=== PATIENT | female | born 2000 | race Caucasian/White ===

== ENCOUNTER 2021-03-31 19:24 | Emergency (ER) | payer MEDICAID, SELFPAY ==
[2021-03-31 21:23] VITALS: BP 127/48; PULSE 77; RESP 16; TEMP 36.3; O2SAT 98; BMI 22.6
--- NOTE | 2021-03-31 22:39 | ED_ITS ---
HPI - Skin/Abscess/Foreign Bdy General Chief complaint: Skin/Abscess/Foreign Body Stated complaint: scabies Time Seen by Provider: 03/31/21 22:34 Source: patient Mode of arrival: ambulatory Limitations: no limitations History of Present Illness HPI narrative: Patient is a 20-year-old female with no significant past medical history who is here complaining of a rash. She states she has had the rash for 2 days it has on her inner thighs, her labia, her buttocks, hips and right hand. She states that is spreading. She did take some Benadryl 2 hours ago which has helped with the itching. She states she went to urgent care yesterday and was told she had scabies in was given treatment for scabies which did not help. She states that is itchy but she denies fevers. she [place] to being [place] 2 days [place] hiking and swimming. Related Data Previous Rx's Medication Instructions Recorded prednisone 20 mg PO DAILY 4 Days #4 tab 03/31/21 Allergies Allergy/AdvReac Type Severity Reaction Status Date / Time penicillin V Allergy Unknown Hives Verified 03/31/21 21:27 Penicillins Allergy Unknown RASH/HIVES Verified 03/31/21 21:27 Review of Systems Review of Systems: Yes all other systems are reviewed and are negative [facility] Past Medical History Medical History Asthma Social History Social History Advance Directives: No Advance Directives Information Provided: Yes Patient : No Physical Exam Vital Signs: Vital Signs: Last Vital Signs Temp 97.3 F 03/31/21 21:23 Pulse 77 03/31/21 21:23 Resp 16 03/31/21 21:23 BP 127/48 L 03/31/21 21:23 Pulse Ox 98 03/31/21 21:23 Body Mass Index 22.6 Const: General: cooperative, healthy appearing, comfortable and no acute distress Nutritional Appearance: average body habitus Orientation/consciousness: patient oriented x3 Limitations: no limitations Eyes: General: appearance normal, both eyes and all related structures Skin: Other: erythematous, raised, linear patches in bilateral groin, left hip, left hand and small patch on abdomen. Neuro: General: patient oriented x3 Discharge Plan Discharge Clinical Impression: Allergic dermatitis due to poison zainab Patient Disposition: Home, Self-Care Instructions: Poison Zainab (ED) Additional Instructions: As discussed, you sghould soak in Oatmeal baths and use calamine lotion on the affected areas but do not use it on your genitals. you may also take Zantac in addition to the Benadryl for pain relief. I am also sending a prescription for a low-dose of prednisone which is a steroid to help with the itching. you want to be sure to take the prednisone in the morning as it may make her heart race, it may make you hungry and unable to sleep. please be sure to wash all of your clothes and once you touch the affected areas, please be sure to wash her hands as it is easily spreadable and contagious. Prescriptions: New prednisone 20 mg tablet 20 mg PO DAILY 4 Days Qty: 4 RF: 0
== END 2021-03-31 23:12 | disposition home or self-care (01) ==
PROVIDERS: Emergency Provider Internal Medicine; PCP Pediatrics
DX: L23.7 Allergic contact dermatitis due to plants, except food (principal)
CPT/HCPCS: 99283

== ENCOUNTER 2021-04-13 18:55 | Emergency (ER) | payer MEDICAID, SELFPAY ==
[2021-04-13 19:44] VITALS: BP 104/67; TEMP 37; O2SAT 99; BMI 23.0
[2021-04-13 20:40] VITALS: BP 118/70; PULSE 97; RESP 16; O2SAT 99
--- NOTE | 2021-04-13 20:59 | ED.SKABFB ---
HPI - Skin/Abscess/Foreign Bdy General Chief complaint: Skin/Abscess/Foreign Body Stated complaint: abcess Time Seen by Provider: 04/13/21 20:48 Source: patient Mode of arrival: ambulatory Limitations: no limitations History of Present Illness HPI narrative: Patient comes emergency room complaining of 3 abscesses in both labia and 1 is in the perianal region. All are small, started approximately 3-4 days ago, not draining. Patient denies fever chills. Of note, about a week ago patient had poison leobardo around the same area, has been applying calamine. MD complaint: abscess/boil Related Data Previous Rx's Medication Instructions Recorded prednisone 20 mg PO DAILY 4 Days #4 tab 03/31/21 sulfamethoxazole-trimethoprim 1 tab PO BID #13 tab 04/13/21 [Bactrim DS] Allergies Allergy/AdvReac Type Severity Reaction Status Date / Time penicillin V Allergy Unknown Hives Verified 03/31/21 21:27 Penicillins Allergy Unknown RASH/HIVES Verified 03/31/21 21:27 Review of Systems Review of Systems: Constitutional : No Weight loss, No Fever, No Chills, No Night Sweats, No Fatigue, No Malaise ENT/Mouth : No Hearing loss, No Ear Pain, No Nasal Congestion, No Sinus Pain, No Hoarseness, No sore throat, No Rhinorrhea, No Swallowing Difficulty Eyes: No Eye Pain, No Swelling, No Redness, No Foreign Body, No Discharge, No Vision Changes Cardiovascular : No Chest Pain, No SOB, No Dyspnea on Exertion, No Orthopnea, No Edema, No Palpitations Respiratory : No Cough, No Sputum, No Wheezing, No Smoke Exposure, No Dyspnea Gastrointestinal : No Nausea, No Vomiting, No Diarrhea, No Constipation, No abdominal Pain, No Hematochezia, No Melena Genitourinary : no irregular bleeding, No Dysuria, No Urinary Frequency, No Hematuria, No Urinary Incontinence, No Urgency, No Flank Pain, No Urinary Flow Changes, No Hesitancy Musculoskeletal : No joint pain, No Myalgias, No Joint Swelling Skin : Complaining of 3 small abscesses in both labia in the perineal region Neuro : No Weakness, No Numbness, No Paresthesias, No Loss of Consciousness, No Dizziness, No Headache Psych : No Anxiety/Panic, No Depression, No SI/HI/AH/VH, No Social Issues, Heme/Lymph: No Bruising, No Bleeding,No Lymphadenopathy Endocrine : No Polyuria, No Polydipsia, No Temperature Intolerance PMFSH Past Medical History Medical History Asthma Social History Social History Advance Directives: No Advance Directives Information Provided: No Patient : No Physical Exam Vital Signs: Vital Signs: Last Vital Signs Temp 98.6 F 04/13/21 19:44 Pulse 97 04/13/21 20:40 Resp 16 04/13/21 20:40 BP 118/70 04/13/21 20:40 Pulse Ox 99 04/13/21 20:40 Body Mass Index 23.0 Appearance: Alert. Oriented X3. No acute distress. Eyes: Pupils equal, round and reactive to light. ENT: Pharynx normal. Neck: Normal inspection. Neck supple. No lymph nodes noted. No crepitus CVS: Normal heart rate and rhythm. Pulses normal. Normal S1 and S2 Respiratory: No respiratory distress. Breath sounds normal. No Wheezing. No rales Abdomen: Soft and nontender. No rigidity. No distention. : Small, 0.5 cm lump in right labia majora, 1 cm lump in left labia majora, 1 cm lump in the perineal region, all are closed, no draining. Bedside ultrasound shows that none of the labial cysts have any significant amount of fluid Skin: Skin warm and dry. Normal skin color. Normal skin turgor. Perirectal abscess at the 9 o'clock position shows a very small amount of fluid, red to touch, tender to palpation Extremities: No lower extremity edema. No lower extremity edema. No Lacerations. No Rash Neuro: Oriented X 3. No motor deficit. No sensory deficit. Moving all extermities. No slurred speech. Course Course Course Narrative: I discussed the physical exam with the patient, the vaginal cyst are too small and there was no fluid to be drained. The cyst in the back, was numbed with lidocaine, scant amount of pus was drained with a needle. Patient was giving the 1st dose of antibiotic, Bactrim, patient is allergic to penicillins I discussed with the patient that it is possible that with antibiotics, the abscesses may resolve since they are fairly small. However, potentially this labial abscesses and the perirectal abscess may grow. I discussed with the patient that if she has any fever, chills, growing abscesses or increased discomfort, she needs to return to emergency room. Procedures Abscess I/D Site: adrian-rectal Side (if applicable): left Local Anesthetic: lidocaine 2% Amount of anesthesia used (mL): 1 Technique: needle aspiration Amount of fluid expressed (mL): 0 Sent for culture/gram staining?: No Irrigation: No Packing used?: none Complications: pain Discharge Plan Discharge Clinical Impression: Abscess of skin or subcutaneous tissue Qualifiers: Site of cutaneous abscess: unspecified site Qualified Code(s): L02.91 - Cutaneous abscess, unspecified Patient Disposition: Home, Self-Care Instructions: Abscess (ED) Additional Instructions: Please follow-up with your primary care physician tomorrow. If you have any worsening or new symptoms, please return to the emergency room or call 911 Prescriptions: New sulfamethoxazole-trimethoprim [Bactrim DS] 800-160 mg tablet 1 tab PO BID Qty: 13 RF: 0 No Action prednisone 20 mg tablet 20 mg PO DAILY 4 Days Qty: 4 RF: 0
[2021-04-13] MEDS: Lidocaine HCl 2 % MPF 5 ML VIAL INFILTRATI (21:56)
== END 2021-04-13 22:02 | disposition home or self-care (01) ==
PROVIDERS: Emergency Provider Emergency Medicine
DX: K61.1 Rectal abscess (principal); N76.4 Abscess of vulva
CPT/HCPCS: 10160; 99284

== ENCOUNTER 2023-10-05 21:51 | Emergency (ER) | payer OTHER, MEDICAID, SELFPAY ==
[2023-10-05 21:57] VITALS: BP 116/64; PULSE 75; RESP 18; TEMP 37; O2SAT 98; BMI 27.6
[2023-10-06 02:19] VITALS: BP 109/59; PULSE 72; RESP 16; TEMP 36.8; O2SAT 99
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
[2023-10-06] MEDS: Ibuprofen 400 MG TABLET PO (03:28)
[2023-10-06] MEDS: Cyclobenzaprine HCl 5 MG TABLET PO (03:28)
[2023-10-06] MEDS: Lidocaine 4 % Patch ADH..PATCH 1 PATCH TRANSDERMA (03:29)
[2023-10-06] MEDS: Acetaminophen 325 MG TABLET 975 MG PO (03:29)
[2023-10-06 03:35] VITALS: BP 114/79; PULSE 77; RESP 16; O2SAT 99
== END 2023-10-06 03:41 | disposition home or self-care (01) ==
PROVIDERS: Emergency Provider Student in an Organized Health Care Education/Training Program; PCP Family Medicine
DX: S09.90XA Unspecified injury of head, initial encounter (principal); V47.5XXA Car driver injured in collision with fixed or stationary object in traffic accident, initial encounter; Y93.9 Activity, unspecified; Y92.410 Unspecified street and highway as the place of occurrence of the external cause; Y99.9 Unspecified external cause status; R25.2 Cramp and spasm; M79.18 Myalgia, other site
CPT/HCPCS: 99283; 99284

== ENCOUNTER 2024-05-11 16:36 | Inpatient (IN) | payer OTHER, SELFPAY ==
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
[2024-05-11 16:54] VITALS: BP 124/78; PULSE 106; RESP 16; TEMP 37; O2SAT 98; BMI 22.7
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
[2024-05-11] MEDS: Acetaminophen 325 MG TABLET 650 MG PO (17:52)
[2024-05-11 17:53] LABS: MANUAL DIFF FLAG NO
[2024-05-11] MEDS: 0.9 % Sodium Chloride 1,000 ML 999 ML IV (17:53)
[2024-05-11 17:56] LABS: Basophils Percent Auto 0.4 % (0-2); Eosinophils Absolute Auto 0.2 X10*3/uL (0.0-0.4); Eosinophils Percent Auto 2.3 % (0-4); Hematocrit 40.2 % (37.0-47.0); Hemoglobin 13.9 g/dl (12.0-16.0); Imm Gran Abs Auto 0.03 X10*3/uL (0.00-0.03); Imm Gran Pct Auto 0.3 % (0.0-0.4); Lymphocytes Absolute Auto 2.1 X10*3/uL (1.2-4.9); Mean Corpuscular HGB Conc 34.6 g/dl (31.0-35.0); Mean Corpuscular Hemoglobin 32.2 pg (27.0-33.0); Mean Corpuscular Volume 93.1 fL (80.0-98.0); Mean Platelet Volume 9.3 fL (9.4-12.3); Monocytes Absolute Auto 0.6 X10*3/uL (0.1-1.2); Monocytes Percent Auto 6.8 % (2-11); Neutrophils Percent Auto 67.2 % (45-73); Platelet Count 261 X10*3/uL (160-400); Red Blood Count 4.32 X10*6/uL (4.20-5.50); Red Cell Distribution Width 12.8 % (11.0-16.0)
[2024-05-11 18:01] LABS: Amphetamine Screen Urine Not Detected (Not Detect); Barbiturates, Urine Not Detected (Not Detect); Benzodiazepines Screen Urine Not Detected (Not Detect); Buprenorphine Scr Not Detected (Not Detect); Cannabinoid Screen Urine Not Detected (Not Detect); Cocaine Screen Urine Not Detected (Not Detect); Fentanyl, urine Not Detected (Not Detect); Methadone Screen, Urine Not Detected (Not Detect); Opiate Screen Urine Not Detected (Not Detect); Oxycodone Screen Urine Not Detected (Not Detect); Phencyclidine Screen Urine Not Detected (Not Detect)
[2024-05-11 18:08] LABS: Appearance Urine Turbid; Color Urine Yellow; Glucose Urine UA Negative (Negative); Leukocyte Esterase Urine Trace (Negative); Nitrite Urine Negative (Negative); PH 6.5 (5.0-9.0); Specific Gravity - Urine 1.015 (1.005-1.025); UMIC TRIGGER UA YES; Urine Blood Large (3+) (Negative); Urine Ketones Negative (Negative); Urine Protein 30 (1+) mg/dL (Neg-Trace)
[2024-05-11 18:13] LABS: UPreg QC Valid YES; Urine Pregnancy NEGATIVE (NEGATIVE)
[2024-05-11 18:18] LABS: Anion Gap 12 (12-20); Blood Urea Nitrogen 13 mg/dL (9-16); Calcium 9.5 mg/dL (8.4-10.2); Carbon Dioxide 23 mmol/L (22-29); Chloride 109 mmol/L (96-108); Creatinine Clr Calc Pharmacy 76.1; Estimated Glomerular Filt Rate > 60; Glucose Random 90 mg/dL (60-115); Potassium 4.6 mmol/L (3.3-5.1); Sodium 139 mmol/L (135-145)
[2024-05-11 18:38] LABS: Bacteria Urine Trace (None Seen); Hyaline Casts Urine 0-2 /LPF (0-2); RBC Urine 0-2 /HPF (0-2); WBC Urine 0-5 /HPF (0-5)
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
--- NOTE | 2024-05-11 20:41 | MHC.EDTECH ---
PT family took pt clothing home. pt only has cellphone with her. [facility]
[2024-05-11] MEDS: Nicotine Polacrilex 2 MG GUM BUCCAL (21:03)
[2024-05-12 00:44] VITALS: BP 106/55; PULSE 67; RESP 16; TEMP 36.7; O2SAT 98
[2024-05-12 02:52] LABS: Ethanol < 10 mg/dL
[2024-05-12 07:29] VITALS: BP 107/63; PULSE 70; RESP 18; TEMP 37.1; O2SAT 98
[2024-05-12] MEDS: 0.9 % Sodium Chloride 1,000 ML 999 ML IV (07:42)
--- NOTE | 2024-05-12 08:11 | PC.NURSE ---
Per patient only medication she takes is lamictal 150mg daily
[2024-05-12] MEDS: Nicotine Polacrilex 2 MG GUM BUCCAL (12:23)
--- NOTE | 2024-05-12 12:50 | PC.NURSE ---
Report given to m5 RN. Patient calm and cooperative , family at bedside
[2024-05-12 13:40] VITALS: BP 112/66; PULSE 72; RESP 16; TEMP 37.1; O2SAT 99
[2024-05-12 13:45] VITALS: BMI 26.4
[2024-05-12] MEDS: lamoTRIgine 25 MG TABLET 150 MG PO (15:42)
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
[2024-05-12] MEDS: Nicotine Polacrilex 2 MG GUM 4 MG BUCCAL ×2 (16:06→19:10)
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
[2024-05-12 20:00] VITALS: BP 132/60; PULSE 86; TEMP 36.7; O2SAT 100
[2024-05-13 07:49] LABS: Estimated Average Glucose 103 mg/dL; Hemoglobin A1c % 5.2 % (<6.0)
[2024-05-13 08:00] VITALS: BP 113/55; PULSE 61; RESP 16; TEMP 36.4; O2SAT 99
[2024-05-13 08:00] LABS: Cholesterol 150 mg/dL (<200); HDL Cholesterol 60 mg/dL (>40); LDL Cholesterol Calculated 83 mg/dL (<100); Magnesium 2.2 mg/dL (1.6-2.6); Triglycerides 38 mg/dL (<150)
[2024-05-13 08:19] LABS: Free T4 (Free Thyroxine) 0.97 ng/dL (0.71-1.85); Thyroid Stimulating Hormone 1.07 uIU/mL (0.32-4.0)
[2024-05-13] MEDS: lamoTRIgine 100 MG TABLET PO ×2 (08:23→20:01)
[2024-05-13 08:31] LABS: Folate 8.6 ng/mL (> or = 4.0); Vitamin B12 609 pg/mL (200-900)
[2024-05-13] MEDS: ARIPiprazole 2 MG TABLET PO (08:50)
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
[2024-05-13] MEDS: Nicotine Polacrilex 2 MG GUM 4 MG BUCCAL ×2 (10:53→20:00)
[2024-05-13] MEDS: Nicotine 21 MG PATCH.TD24 TRANSDERMA (10:54)
[2024-05-13 20:00] VITALS: BP 125/79; PULSE 72; RESP 17; TEMP 36.7; O2SAT 100
[2024-05-13] MEDS: guanFACINE HCl ER 1 MG TAB.ER.24H PO (20:01)
[2024-05-13] MEDS: hydrOXYzine HCL 25 MG TABLET PO (20:01)
[2024-05-14 07:40] VITALS: BP 109/53; PULSE 56; RESP 14; TEMP 36.7; O2SAT 100
[2024-05-14 08:00] VITALS: BP 109/53; PULSE 56; RESP 16; TEMP 36.6; O2SAT 100
[2024-05-14] MEDS: lamoTRIgine 100 MG TABLET PO ×2 (08:38→21:31)
[2024-05-14] MEDS: ARIPiprazole 2 MG TABLET PO (08:38)
[2024-05-14] MEDS: Nicotine Polacrilex 2 MG GUM 4 MG BUCCAL ×2 (10:08→18:12)
[2024-05-14] MEDS: Nicotine 21 MG PATCH.TD24 TRANSDERMA (10:08)
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
[2024-05-14 20:00] VITALS: BP 122/69; PULSE 82; TEMP 36.7
[2024-05-14] MEDS: guanFACINE HCl ER 1 MG TAB.ER.24H PO (21:31)
[2024-05-15 08:00] VITALS: BP 97/54; PULSE 59; RESP 14; TEMP 36.7; O2SAT 99
[2024-05-15] MEDS: lamoTRIgine 100 MG TABLET PO ×2 (08:30→22:23)
[2024-05-15] MEDS: ARIPiprazole 2 MG TABLET PO (08:30)
[2024-05-15] MEDS: Nicotine 21 MG PATCH.TD24 TRANSDERMA (08:32)
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
[2024-05-15] MEDS: Nicotine Polacrilex 2 MG GUM 4 MG BUCCAL ×2 (16:19→20:33)
[2024-05-15 20:00] VITALS: BP 115/69; PULSE 78; RESP 16; TEMP 36.2; O2SAT 100
[2024-05-15] MEDS: guanFACINE HCl ER 1 MG TAB.ER.24H PO (22:23)
[2024-05-15] MEDS: traZODone HCL 50 MG TABLET PO (22:23)
[2024-05-15] MEDS: hydrOXYzine HCL 25 MG TABLET PO (22:23)
[2024-05-16 08:00] VITALS: BP 105/58; PULSE 64; RESP 17; TEMP 36.4; O2SAT 99
[2024-05-16] MEDS: ARIPiprazole 2 MG TABLET PO (08:21)
[2024-05-16] MEDS: lamoTRIgine 100 MG TABLET PO ×2 (08:21→23:23)
[2024-05-16] MEDS: Nicotine 21 MG PATCH.TD24 TRANSDERMA (08:23)
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
[2024-05-16] MEDS: Nicotine Polacrilex 2 MG GUM 4 MG BUCCAL ×2 (14:43→20:29)
[2024-05-16 20:00] VITALS: BP 119/64; PULSE 84; RESP 18; TEMP 36.6; O2SAT 100
[2024-05-16] MEDS: traZODone HCL 50 MG TABLET PO (23:23)
[2024-05-16] MEDS: hydrOXYzine HCL 25 MG TABLET PO (23:23)
[2024-05-16] MEDS: guanFACINE HCl ER 1 MG TAB.ER.24H PO (23:23)
[2024-05-17 08:00] VITALS: BP 104/52; PULSE 66; RESP 16; TEMP 36.1; O2SAT 98
[2024-05-17] MEDS: ARIPiprazole 2 MG TABLET PO (08:50)
[2024-05-17] MEDS: lamoTRIgine 100 MG TABLET PO ×2 (08:50→21:40)
[2024-05-17] MEDS: Nicotine 21 MG PATCH.TD24 TRANSDERMA (09:22)
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
[2024-05-17] MEDS: Nicotine Polacrilex 2 MG GUM 4 MG BUCCAL ×2 (19:40→21:40)
[2024-05-17 20:00] VITALS: BP 114/57; PULSE 76; RESP 16; TEMP 36.8; O2SAT 100
[2024-05-17] MEDS: guanFACINE HCl ER 1 MG TAB.ER.24H PO (21:40)
[2024-05-17] MEDS: traZODone HCL 50 MG TABLET PO (21:40)
[2024-05-18 07:00] VITALS: BMI 27.0
[2024-05-18 07:55] VITALS: BP 104/56; PULSE 71; RESP 16; TEMP 36.4; O2SAT 98
[2024-05-18] MEDS: ARIPiprazole 2 MG TABLET PO (08:24)
[2024-05-18] MEDS: lamoTRIgine 100 MG TABLET PO ×2 (08:25→21:31)
[2024-05-18] MEDS: Nicotine Polacrilex 2 MG GUM 4 MG BUCCAL ×3 (12:13→21:30)
[2024-05-18] MEDS: Nicotine 21 MG PATCH.TD24 TRANSDERMA (12:14)
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
[2024-05-18 20:00] VITALS: BP 122/57; PULSE 84; TEMP 36.7; O2SAT 99
[2024-05-18] MEDS: traZODone HCL 50 MG TABLET PO (21:30)
[2024-05-18] MEDS: guanFACINE HCl ER 1 MG TAB.ER.24H PO (21:31)
[2024-05-19] MEDS: lamoTRIgine 100 MG TABLET PO (08:21)
[2024-05-19] MEDS: ARIPiprazole 2 MG TABLET PO (08:21)
[2024-05-19] MEDS: Nicotine Polacrilex 2 MG GUM 4 MG BUCCAL (08:38)
[2024-05-19] MEDS: Nicotine 21 MG PATCH.TD24 TRANSDERMA (08:38)
[2024-05-19 09:34] VITALS: BP 104/55; PULSE 90; RESP 18; TEMP 37.2; O2SAT 99
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
== END 2024-05-19 11:25 | disposition home or self-care (01) | DRG 885 ==
LOC: HO.ED 22:10 → HO.PM5 05-12 12:28
PROVIDERS: Admitting Provider Clinical Nurse Specialist Psychiatric/Mental Health, Adult; Emergency Provider Student in an Organized Health Care Education/Training Program; PCP Family Medicine; Visit Provider Psychiatry & Neurology Psychiatry
DX: F31.89 Other bipolar disorder (principal); R45.851 Suicidal ideations; S00.03XA Contusion of scalp, initial encounter; X83.8XXA Intentional self-harm by other specified means, initial encounter; F17.210 Nicotine dependence, cigarettes, uncomplicated; Z71.6 Tobacco abuse counseling; F60.3 Borderline personality disorder; F10.10 Alcohol abuse, uncomplicated; F43.12 Post-traumatic stress disorder, chronic; Z79.899 Other long term (current) drug therapy
CPT/HCPCS: 36415; 70450; 71046; 72125; 73030; 73080; 80048; 80061; 80307; 81001; 81025; 82607; 82746; 83036; 83735; 84439; 84443; 85025; 93005; 99285; S9485

== ENCOUNTER → 2024-05-11 17:14 | Outpatient (BNV) | payer OTHER, SELFPAY | PROVIDERS: Emergency Provider Student in an Organized Health Care Education/Training Program; PCP Family Medicine; Visit Provider Internal Medicine Cardiovascular Disease | DX: S00.03XA Contusion of scalp, initial encounter (principal) | CPT/HCPCS: 93010 ==

== ENCOUNTER → 2024-05-12 12:23 | Outpatient (BNV) | payer OTHER, SELFPAY | PROVIDERS: Admitting Provider Clinical Nurse Specialist Psychiatric/Mental Health, Adult; Emergency Provider Student in an Organized Health Care Education/Training Program; PCP Family Medicine; Visit Provider Psychiatry & Neurology Psychiatry | DX: F43.10 Post-traumatic stress disorder, unspecified (principal); F60.3 Borderline personality disorder; F31.89 Other bipolar disorder | CPT/HCPCS: 90792 ==

== ENCOUNTER → 2024-05-12 12:23 | Outpatient (BNV) | payer OTHER, SELFPAY | PROVIDERS: Admitting Provider Clinical Nurse Specialist Psychiatric/Mental Health, Adult; Emergency Provider Student in an Organized Health Care Education/Training Program; PCP Family Medicine; Visit Provider Psychiatry & Neurology Psychiatry | DX: F60.3 Borderline personality disorder (principal); F31.89 Other bipolar disorder; F43.11 Post-traumatic stress disorder, acute; F10.10 Alcohol abuse, uncomplicated | CPT/HCPCS: 99231; 99232; 99238 ==

== ENCOUNTER → 2024-05-23 10:45 | Outpatient (BNV) | payer OTHER, SELFPAY | PROVIDERS: Visit Provider Psychiatry & Neurology Psychiatry | DX: F43.10 Post-traumatic stress disorder, unspecified (principal); F63.89 Other impulse disorders; F10.10 Alcohol abuse, uncomplicated; F34.89 Other specified persistent mood disorders | CPT/HCPCS: 90792; 99213 ==

== ENCOUNTER 2024-06-12 09:45 | Outpatient (RCR) | payer OTHER, SELFPAY ==
[2024-05-23 14:07] VITALS: BP 104/76; PULSE 65; RESP 14; TEMP 37.1
[2024-05-23 14:09] VITALS: BMI 59.8
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
--- NOTE | 2024-05-25 14:14 | HO.PHP ---
Client's case has been opened and reviewed in team.
--- NOTE | 2024-06-02 22:41 | P.PNPSP_ITS ---
Subjective Subjective Date of Service: 06/02/24 Reason For Visit: PTSD,bipolar Interim History: Patient seen for follow-up. She continues on her regular medications, but has not started on any of the changes we made thus far. She says she is having trouble with [facility] covering her meds and is questioning whether she will need to drive around to different pharmacies for all these medications . She does have insurance so gabapentin, aripriprazole guanfacine should be covered. If Vyvanse is not covered she could let me know and I would fill out a PA. She relays having a lot of financial constraints and needs to limit the costs. I let her know she is not expected to be paying a lot for her meds, so if this is the case then to let me know so we can sort this out. She is eager to start on medications as she continues to experience anxiety, cravings and sleep issues. Mood is the same. No other changes. She cotnieus to participate in program. SHe also asks about [facility] to be completed by discharge day. She is planning to return to work next week Medication Compliance: No (as noted above) Attending Groups: Yes Review of Systems Acute medical concerns: No Mental Status Exam Mental Status Exam Narrative: Alert, oriented, in no acute distress. Calm, cooperative, engaged.. Eye contact maintained. Mood anxious, affect appropriate no noted lability or irritability.. Speech normal. Organzied, Thought content related to stressors, denies any hopelessness or SI. Denies any aggressive ideation or HI. No paranoia or delusional content elicited. No evidence of psychosis. Insight and judgment - fair but adequate. Diagnostics Vital Signs (24Hr): BMI result Body Mass Index 59.8 Assessment & Plan Assessment & Plan (1) Complex posttraumatic stress disorder: Status: Acute Code(s): F43.10 - Post-traumatic stress disorder, unspecified (2) Other impulse disorders: Status: Acute Code(s): F63.89 - Other impulse disorders (3) Alcohol abuse: Status: Acute Code(s): F10.10 - Alcohol abuse, uncomplicated (4) Other specified persistent mood disorders: Status: Acute Code(s): F34.89 - Other specified persistent mood disorders Plan increase dose of Abilify to 5 mg qd start lisdexamfetamine 10 mg qam guanfacine ER qd prn anxiety start gabapentin 300-600 mg qhs for sleep continue other regular medications? Routine lab work ordered EKG, routine for baseline QTc for medication considerations UDS as indicated MassPat reviewed Continue to monitor as per protocol Patient educated on: diagnosis, medication risk/benefits and substance abuse Informed Consent: understands Reason for contiued partial hosp. stay Substantial Risk for: rapid decompensation and med/psych decompensation Certification I certify that partial hospital treatment is medically necessary due to the symptoms and problems resulting from the patient's mental illness and the failure to treat the patient at the partial hospital level of care would likely result in the patient requiring inpatient psychiatric care which could not be prevented at a less intensive level of care. Total time managing care of this patient today __30__ minutes. Discharge Plan Discharge Attending provider: Anita Jaimes Medications: New gabapentin 300 mg capsule 300 mg PO BID Qty: 30 0RF Continued guanfacine 1 mg Tablet Extended Release 24 Hr 1 mg PO BEDTIME 30 Days Qty: 30 1RF aripiprazole [Abilify] 2 mg Tablet 2 mg PO DAILY 30 Days Qty: 30 1RF hydroxyzine HCl 25 mg Tablet 25 mg PO Q6H PRN (Reason: Anxiety) 30 Days Qty: 90 1RF lamotrigine 100 mg Tablet 100 mg PO BID 30 Days Qty: 60 1RF aripiprazole 5 mg tablet 5 mg PO DAILY Qty: 30 0RF lisdexamfetamine 10 mg capsule 10 mg PO QAM Qty: 30 0RF Rx Instructions: Partial Fill upon patient request. No Action trazodone 50 mg Tablet 50 mg PO BEDTIME PRN (Reason: Insomnia) 30 Days Qty: 30 1RF Print Language: Kinyarwanda
--- NOTE | 2024-06-06 10:32 | P.PNPSP_ITS ---
Subjective Subjective Date of Service: 06/06/24 Reason For Visit: PTSD,bipolar Interim History: Patient seen for follow-up, anticipating discharge at the end of program today.? Mood it's been okay, not been the best at times. She has been reluctant to fill medications because she does not know the cost and money is tight. We call pharmacy and get costs for her meds which runs a total of ~$45 ($33 of which is Vyvanse). She has continued Abilify at 2 mg still but once she picks up 5 mg she will move up to 3.5 mg until meeting up with OP provider, then can continue titration toward 5 mg. Reports no acute issues or concerns. Continues to work on medication compliance, says she has been making efforts to take regularly, says this was easier to do inpatient. Otherwise medications well-tolerated. Denies any adverse effects.?Denies any alcohol or substance use in interim. Denies cravings. Denies any depressive symptoms or major mood swings. Denies any symptoms of franck. Denies any hopelessness or SI. Denies thoughts of harming self or others at this time. Denies any aggressive ideation or HI. Denies any paranoia or AH or VH. Sleep, appetite, energy stable. Mental Status Exam Mental Status Exam Narrative: Alert, oriented, in no acute distress. Calm, cooperative, engaged. Eye contact maintained. Mood anxious but stable, affect appropriate.. Speech normal. No evidence of thought disorder. Thought content related to stressors, denies any hopelessness or SI. Denies any aggressive ideation or HI. No paranoia or delusional content elicited. No evidence of psychosis. Insight and judgment - fair but adequate. Diagnostics Vital Signs (24Hr): BMI result Body Mass Index 59.8 Assessment & Plan Assessment & Plan (1) Complex posttraumatic stress disorder: Status: Acute Code(s): F43.10 - Post-traumatic stress disorder, unspecified (2) Other impulse disorders: Status: Acute Code(s): F63.89 - Other impulse disorders (3) Alcohol abuse: Status: Acute Code(s): F10.10 - Alcohol abuse, uncomplicated (4) Other specified persistent mood disorders: Status: Acute Code(s): F34.89 - Other specified persistent mood disorders Plan Discharge from [facility] continue Lamictal 150 mg qd continue Abilify 5 mg qd continue lisdexamfetamine 10 mg qam continue guanfacine ER qd prn anxiety continue gabapentin 300-600 mg qhs for sleep continue other regular medications? Recent lab work reviewed Refills sent to pharmacy Will defer further medication management to outpatient provider *Safety plan reviewed *Discharge diagnoses, treatment course, discharge plan have been reviewed with patient (including medication regime, medication management, potential side effects) as well as treatment rationale were also revisited *Discharge paperwork signed and given to patient, copy sent for scanning to chart Patient educated on: diagnosis, medication risk/benefits and substance abuse Informed Consent: understands Reason for contiued partial hosp. stay Substantial Risk for: stable for discharge Certification I certify that partial hospital treatment is medically necessary due to the symptoms and problems resulting from the patient's mental illness and the failure to treat the patient at the partial hospital level of care would likely result in the patient requiring inpatient psychiatric care which could not be prevented at a less intensive level of care. Total time managing care of this patient today __30__ minutes. Discharge Plan Discharge Attending provider: Anita Jaimes Medications: New lamotrigine 150 mg tablet 150 mg PO DAILY Qty: 30 0RF Continued lisdexamfetamine 10 mg capsule 10 mg PO QAM Qty: 30 0RF Rx Instructions: Partial Fill upon patient request. trazodone 50 mg Tablet 50 mg PO BEDTIME PRN (Reason: Insomnia) 30 Days Qty: 30 0RF aripiprazole 5 mg tablet 5 mg PO DAILY Qty: 30 0RF aripiprazole [Abilify] 2 mg Tablet 2 mg PO DAILY 30 Days Qty: 30 0RF Changed guanfacine 1 mg Tablet Extended Release 24 Hr 1 mg PO QAM PRN (Reason: anxiety) 30 Days Qty: 30 1RF Discontinued hydroxyzine HCl 25 mg Tablet 25 mg PO Q6H PRN (Reason: Anxiety) 30 Days Qty: 90 1RF lamotrigine 100 mg Tablet 100 mg PO BID 30 Days Qty: 60 1RF Stand Alone Forms: Patient Portal Discharge page Patient Education: Post Traumatic Stress Disorder (DC) Print Language: [place]
== END 2024-06-12 23:59 | disposition home or self-care (01) ==
LOC: HO.PHPA 09:45
PROVIDERS: Visit Provider Psychiatry & Neurology Psychiatry
DX: F43.10 Post-traumatic stress disorder, unspecified (principal); F63.89 Other impulse disorders; F34.89 Other specified persistent mood disorders; F10.10 Alcohol abuse, uncomplicated; Z79.899 Other long term (current) drug therapy
CPT/HCPCS: 90791; 90853